=== PATIENT | female | born 1965 | race Caucasian/White ===

== ENCOUNTER → 2024-01-02 12:31 | Outpatient (REF) | payer BC, SELFPAY ==
[2024-01-02 12:49] VITALS: BP 115/71; BP_SYST 79
== END ==
LOC: RADI 12:31
PROVIDERS: ATTENDING PHYSICIAN Internal Medicine Endocrinology, Diabetes & Metabolism; FAMILY PHYSICIAN Emergency Medicine
DX: E04.2 Nontoxic multinodular goiter (principal)
CPT/HCPCS: 88173; 10005; 10006

== ENCOUNTER → 2024-03-14 07:44 | Outpatient (REF) | payer BC, SELFPAY | LOC: WDC 07:44 | PROVIDERS: ATTENDING PHYSICIAN Nurse Practitioner Adult Health; FAMILY PHYSICIAN Emergency Medicine | DX: R92.8 Other abnormal and inconclusive findings on diagnostic imaging of breast (principal) | CPT/HCPCS: 76642 ==

== ENCOUNTER → 2024-04-01 07:48 | Outpatient (REF) | payer BC, SELFPAY | LOC: HWRAD 07:48 | PROVIDERS: ATTENDING PHYSICIAN Nurse Practitioner Family; FAMILY PHYSICIAN Emergency Medicine; REFERRING PHYSICIAN Obstetrics & Gynecology | DX: M85.80 Other specified disorders of bone density and structure, unspecified site (principal); Z12.31 Encounter for screening mammogram for malignant neoplasm of breast | CPT/HCPCS: 77063; 77067; 77080 ==

== ENCOUNTER → 2025-04-02 07:47 | Outpatient (REF) | payer BC, SELFPAY | LOC: HWWDC 07:47 | PROVIDERS: FAMILY PHYSICIAN Emergency Medicine; OTHER PHYSICIAN Obstetrics & Gynecology; REFERRING PHYSICIAN Internal Medicine Endocrinology, Diabetes & Metabolism | DX: M81.0 Age-related osteoporosis without current pathological fracture (principal); Z12.39 Encounter for other screening for malignant neoplasm of breast | CPT/HCPCS: 77063; 77067; 77080 ==

== ENCOUNTER → 2025-07-08 10:59 | Outpatient (REF) | payer BC, SELFPAY | LOC: MRI 3T 10:59 | PROVIDERS: ATTENDING PHYSICIAN Surgery; FAMILY PHYSICIAN Family Medicine | DX: Z98.82 Breast implant status (principal); Z85.3 Personal history of malignant neoplasm of breast | CPT/HCPCS: 77049; A9585 ==